=== PATIENT | male | born 1955 | race Caucasian/White ===

== ENCOUNTER 2018-12-08 23:48 | Emergency (ER) | payer BC ==
--- NOTE | 2018-12-09 | EDM.PDOC ---
ED HPI GENERAL MEDICAL PROBLEM - General Chief Complaint: Trauma Stated Complaint: AMBULANCE-TRAUMA Time Seen by Provider: 12/08/18 23:48 Source of Information: Reports: Patient, Family History Limitations: Reports: No Limitations - History of Present Illness INITIAL COMMENTS - FREE TEXT/NARRATIVE: EMS arrived pt alert sitting in chair. were told by pt's who found pt lying out on ground unconscious. pt states was getting to bed and woke up in bed doesn't know how he got to bed and has no idea he even fell out the back door that doesn't have any steps for they are getting ready to build a deck. states has no reason to even go there. denies h/o sleep walking. c/o pain in right shoulder pointing to deltoid bicipital tendon area. swelling left middle finger but can move it well. Review of Systems - Review of Systems Review Of Systems: ROS reveals no pertinent complaints other than HPI. ED EXAM, GENERAL - Physical Exam Exam: See Below Exam Limited By: No Limitations General Appearance: Alert, WD/WN, No Apparent Distress Eye Exam: Bilateral Eye: PERRL (pupils ER @ 4mm) Ears: Hearing Grossly Normal Throat/Mouth: Normal Voice, No Airway Compromise Head: Atraumatic Neck: Non-Tender, Full Range of Motion, Other (C-collar applied) Respiratory/Chest: No Respiratory Distress, No Accessory Muscle Use, Rhonchi, Other (tenderness over right lateral region without E/C) Cardiovascular: Regular Rate, Rhythm GI/Abdominal: Soft, Non-Tender Extremities: Other (tender deltiod bicipital tendon area, left middle finger swollen tender R/P, NV wnl.) Neurological: Alert, Oriented, Normal Cognition, No Motor/Sensory Deficits Psychiatric: Normal Affect, Normal Mood Skin Exam: Warm, Dry, Normal Color Lymphatic: No Adenopathy Course - Orders/Labs/Meds Orders: Active Orders 24 hr Category Date Time Status EKG 12 Lead [EKG Documentation Completion] [RC] STAT Care 12/08/18 23:54 Inactive Fingers Third Digit Lt F2 [CR] Urgent Exams 12/09/18 01:15 Taken Labs: Laboratory Tests 12/08/18 12/08/18 12/08/18 Range/Units 23:50 23:50 23:50 WBC 9.9 (5.0-10.0) 10^3/uL RBC 4.53 L (4.6-6.2) 10^6/uL Hgb 14.0 (14.0-18.0) g/dL Hct 41.7 (40.0-54.0) % MCV 92.1 (80-100) fL MCH 30.9 (27.0-34.0) pg MCHC 33.6 (33.0-35.0) g/dL Plt Count 297 (150-450) 10^3/uL Neut % (Auto) 61.3 (42.2-75.2) % Lymph % (Auto) 29.5 (20.5-50.1) % Finney % (Auto) 8.1 H (2-8) % Eos % (Auto) 0.9 L (1.0-3.0) % Baso % (Auto) 0.2 (0.0-1.0) % Add Manual Diff Yes Neutrophils % (Manual) 51 (42-75) % Band Neutrophils % 5 % Lymphocytes % (Manual) 40 (20-50) % Atypical Lymphs % 0 % Monocytes % (Manual) 3 (2-8) % Eosinophils % (Manual) 1 (1-3) % Basophils % (Manual) 0 PT 9.7 (9.0-12.0) SEC INR 0.9 (0.9-1.2) APTT 22.4 (22.0-34.0) SEC Sodium 141 (135-145) mmol/L Potassium 3.5 L (3.6-5.0) mmol/L Chloride 106 (101-111) mmol/L Carbon Dioxide 27.0 (21.0-31.0) mmol/L Anion Gap 11.5 BUN 13 (7-18) mg/dL Creatinine 0.9 (0.6-1.3) mg/dL Est Cr Clr Drug Dosing TNP Estimated GFR (MDRD) > 60 BUN/Creatinine Ratio 14.44 Glucose 151 H (74-105) mg/dL Calcium 8.6 (8.4-10.2) mg/dl Total Bilirubin 0.6 (0.2-1.0) mg/dL AST 34 (10-42) IU/L ALT 34 (10-60) IU/L Alkaline Phosphatase 66 (42-121) IU/L Troponin I < 0.02 (0.00-0.02) ng/ml Total Protein 7.2 (6.7-8.2) g/dl Albumin 4.1 (3.2-5.5) g/dl Globulin 3.1 Albumin/Globulin Ratio 1.32 Ethyl Alcohol 135 mg/dL Meds: Medications Discontinued Medications Generic Name Dose Route Start Last Admin Trade Name Tray PRN Reason Stop Dose Admin Acetaminophen 325 mg 12/09/18 01:31 12/09/18 01:56 Tylenol PO 12/09/18 01:32 325 mg NOW ONE Administration - Re-Assessments/Exams Free Text/Narrative Re-Assessment/Exam: 12/09/18 02:05 results discussed with pt & spouse. Departure - Departure Time of Disposition: 02:05 Disposition: Home, Self-Care 01 Condition: Good Clinical Impression: Closed rib fracture Qualifiers: Encounter type: initial encounter Rib fracture type: single rib Laterality: right Qualified Code(s): S22.31XA - Fracture of one rib, right side, initial encounter for closed fracture Finger fracture, left Qualifiers: Encounter type: initial encounter Finger: middle finger Fracture type: closed Phalanx: distal Fracture alignment: nondisplaced Qualified Code(s): S62.663A - Nondisplaced fracture of distal phalanx of left middle finger, initial encounter for closed fracture Concussion Qualifiers: Encounter type: initial encounter Loss of consciousness presence/duration: with LOC of unspecified duration Qualified Code(s): S06.0X9A - Concussion with loss of consciousness of unspecified duration, initial encounter Acromioclavicular (AC) joint injury Qualifiers: Encounter type: initial encounter Laterality: right Qualified Code(s): S49.91XA - Unspecified injury of right shoulder and upper arm, initial encounter - Discharge Information Instructions: Post-Concussion Syndrome Referrals: PCP,None [Primary Care Provider] - Forms: ED Department Discharge Additional Instructions: 1) see clinic tomorrow for orthopedic referral of right shoulder ACJ injury and rib fracture follow up. 2) take tylenol for discomfort 3) recheck if there is any change or concern - My Orders Last 24 Hours: My Active Orders 12/08/18 23:54 EKG 12 Lead [EKG Documentation Completion] [RC] STAT 12/09/18 01:15 Fingers Third Digit Lt F2 [CR] Urgent - Assessment/Plan Last 24 Hours: My Active Orders 12/08/18 23:54 EKG 12 Lead [EKG Documentation Completion] [RC] STAT 12/09/18 01:15 Fingers Third Digit Lt F2 [CR] Urgent
[2018-12-09 00:17] LABS: ANION GAP 11.5; CHLORIDE,CL 106 mmol/L (101-111); SODIUM,NA 141 mmol/L (135-145)
[2018-12-09] MEDS ORDERED: Acetaminophen 325 MG Tab PO ONE (01:31)
== END 2018-12-09 02:20 | disposition home or self-care (01) ==
LOC: DL.ED 23:48
DX: S06.0X9A Concussion with loss of consciousness of unspecified duration, initial encounter (principal); S22.31XA Fracture of one rib, right side, initial encounter for closed fracture; S62.663A Nondisplaced fracture of distal phalanx of left middle finger, initial encounter for closed fracture; S49.91XA Unspecified injury of right shoulder and upper arm, initial encounter; W10.9XXA Fall (on) (from) unspecified stairs and steps, initial encounter
CPT/HCPCS: 29125; 36415; 70450; 71101; 72125; 73030; 73140; 80053; 80320; 84484; 85025; 85610; 85730; 99285; A9270; G0480